=== PATIENT | female | born 1950 | race Caucasian/White ===

== ENCOUNTER 2021-01-09 13:38 | Outpatient (REF) | payer MEDICARE, MEDICAID, SELFPAY ==
--- NOTE | ~2021-01-09 | MM_ITS ---
EXAMINATION: BONE DENSITOMETRY CLINICAL INDICATION: Osteopenia. COMPARISON: Previous BD dated 08/26/2013 and baseline BD dated 03/16/2009. TECHNIQUE: Using a [employer] DXA System (software version: 13.1) manufactured by [employer], dual-energy x-ray absorptiometry was performed of the lumbar spine and left hip. The images are of good technical quality. Summary results are attached. FINDINGS: AP SPINE L1-L4: Current: BMD 1.147 g/cm2, Z-score 1.7, T-score -0.3, normal, 20.9% increase from previous, 18.5% increase from baseline (<5% change is not significant). Prior: BMD 0.949 g/cm2. Baseline: BMD 0.968 g/cm2. LEFT FEMUR, NECK: Current: BMD 0.644 g/cm2, Z-score -1.0, T-score -2.8, osteoporosis. Prior: BMD 0.773 g/cm2. Baseline: BMD 0.757 g/cm2. LEFT FEMUR, TOTAL: Current: BMD 0.760 g/cm2, Z-score -0.3, T-score -2.0, osteopenia, 12.4% decrease from previous, 9.3% decrease from baseline (<5% change is not significant). Prior: BMD 0.868 g/cm2. Baseline: BMD 0.838 g/cm2. IDENTIFIED RISK FACTORS: Early menopause, secondary osteoporosis, family history (parental hip fracture). HISTORY OF FRACTURE: None listed. MEDICATIONS: Vitamin D. MM/XR DEXA axial skeleton IMPRESSION: 1. DIAGNOSIS: Osteoporosis based on the lowest T-score value of -2.8 in the femoral neck applying World Health Organization criteria. 2. 10-YEAR FRACTURE RISK PREDICTION, FRAX: According to the guidelines, FRAX calculation should only be performed on patients in the osteopenia bone density category. 3. Treatment Recommendations: NOF guidelines recommend consideration for treatment in postmenopausal women and men age 50 and older presenting with the following: -A hip or vertebral (clinical or morphometric) fracture. -T-score less than or equal to -2.5 at the femoral neck or spine after appropriate evaluation to exclude secondary causes. -Low bone mass at the hip or spine and a 10-year fracture probability by FRAX of greater than or equal to 3% for hip fracture or greater than or equal to 20% for major osteoporotic fracture based on the [place] adapted WHO algorithm. 4. Other Recommendations: All treatment decisions require clinical judgment and consideration of individual patient factors, including patient preferences, comorbidities, previous drug use, risk factors not captured in the FRAX model (e.g. frailty, falls, vitamin D deficiency, increased bone turnover, interval significant decline in bone density) and possible under or overestimation of fracture risk by FRAX. Additional medical evaluation for secondary cause of low bone mineral density may be appropriate. FUTURE SCAN RECOMMENDATION: People with diagnosed cases of osteoporosis or at high risk for fracture should have regular bone mineral density tests. For patients eligible for Medicare, routine testing is allowed once every 2 years. The testing frequency can be increased to one year for patients who have rapidly progressing disease, those who are receiving or discontinuing medical therapy to restore bone mass, or have additional risk factors.
--- NOTE | ~2021-01-09 | MM_ITS ---
EXAMINATION: MM SCREENING DIGITAL BREAST TOMOSYNTHESIS, BILATERAL CLINICAL INFORMATION: Screening. Asymptomatic. 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 Synthesized 2D images are generated from the tomosynthesis. Left exaggerated craniocaudal view also performed. FINDINGS: The breasts are heterogeneously dense, which may obscure small masses (ACR BI-RADS breast composition Category c). There are no significant masses, abnormal calcifications, or other abnormalities. Postsurgical change left breast again seen. MM/MM tomosynthesis screening BI IMPRESSION: There are no significant changes from prior study. ASSESSMENT: BI-RADS 2: Benign RECOMMENDATION: Routine annual mammography screening. This patient's information was entered into a reminder system with a target due date for their next mammogram.
== END 2021-01-09 13:39 | disposition home or self-care (01) ==
LOC: HO.MAMMO 13:38
PROVIDERS: PCP Internal Medicine; Visit Provider Internal Medicine
DX: Z12.31 Encounter for screening mammogram for malignant neoplasm of breast (principal); Z13.820 Encounter for screening for osteoporosis; M85.80 Other specified disorders of bone density and structure, unspecified site; Z78.0 Asymptomatic menopausal state; Z79.899 Other long term (current) drug therapy
CPT/HCPCS: 77063; 77067; 77080

== ENCOUNTER 2021-10-16 14:36 | Outpatient (REF) | payer OTHER, MEDICAID, SELFPAY ==
[2021-10-16 15:01] LABS: MANUAL DIFF FLAG NO
[2021-10-16 15:47] LABS: Basophils Percent Auto 0.5 % (0-2); Eosinophils Absolute Auto 0.1 X10*3/uL (0.0-0.4); Eosinophils Percent Auto 1.2 % (0-4); Hematocrit 38.8 % (37.0-47.0); Hemoglobin 12.7 g/dl (12.0-16.0); Imm Gran Abs Auto 0.01 X10*3/uL (0.00-0.03); Imm Gran Pct Auto 0.2 % (0.0-0.4); Lymphocytes Absolute Auto 2.3 X10*3/uL (1.2-4.9); Lymphocytes Percent Auto 39.8 % (20-40); Mean Corpuscular HGB Conc 32.7 g/dl (31.0-35.0); Mean Corpuscular Hemoglobin 32.3 pg (27.0-33.0); Mean Corpuscular Volume 98.7 fL (80.0-98.0); Mean Platelet Volume 11.6 fL (9.4-12.3); Monocytes Absolute Auto 0.6 X10*3/uL (0.1-1.2); Monocytes Percent Auto 11.1 % (2-11); Neutrophils Absolute Auto 2.7 x10*3/uL (2.0-8.3); Neutrophils Percent Auto 47.2 % (45-73); Platelet Count 245 X10*3/uL (160-400); Red Blood Count 3.93 X10*6/uL (4.20-5.50); Red Cell Distribution Width 14.9 % (11.0-16.0); White Blood Count 5.7 X10*3/uL (4.8-10.8)
[2021-10-16 16:37] LABS: Alanine Aminotransferase 55 U/L (0-31); Albumin Level 4.4 g/dL (3.5-5.0); Alkaline Phosphatase 152 U/L (39-117); Anion Gap 17 (12-20); Aspartate Amino Transferase 64 U/L (5-31); Bilirubin Total 0.5 mg/dL (0.0-1.0); Blood Urea Nitrogen 9 mg/dL (9-16); Calcium 9.5 mg/dL (8.4-10.2); Carbon Dioxide 26 mmol/L (22-29); Chloride 105 mmol/L (96-108); Estimated Glomerular Filt Rate > 60; Gamma Glutamyl Transpeptidase 568 U/L (7-33); Glucose Random 99 mg/dL (60-115); Potassium 4.7 mmol/L (3.3-5.1); Sodium 143 mmol/L (135-145); Total Protein 8.5 g/dL (6.5-8.0)
[2021-10-16 16:55] LABS: Ferritin 68 ng/mL (10-250)
[2021-10-17 04:46] LABS: HBS Num1 0.54 mIU/mL (0-7.99); HBc Num1 0.14 S/CO (0.00-0.79); HBsAGNum1 0.24 S/CO (0.00-0.99); HIV AB/AG Nonreactive (Nonreactive); HIV Num 1 0.06 S/CO (0.00-0.99); Hepatitis A Antibody IgM 0.15 Index (0-0.79); Hepatitis B Core Antibody Nonreactive (Nonreactive); Hepatitis B Surface Antigen Negative (Negative); ~HepC Num1 0.07 S/CO (0.00-0.79); ~Hepatitis A Antibody IgM Nonreactive (Nonreactive); ~Hepatitis B Surface Antibody NONREACTIVE (Nonreactive); ~Hepatitis C Antibody Nonreactive (Nonreactive)
[2021-10-18 12:11] LABS: Alpha Fetoprotein 4.9 ng/mL
[2021-10-19 13:41] LABS: Smooth Muscle Antibody <20 U (<20)
[2021-10-20 16:21] LABS: Mitochondrial Antibodies NEGATIVE (NEGATIVE)
[2021-10-21 15:42] LABS: Anti Nuclear Antibody Screen NEGATIVE (NEGATIVE)
== END 2021-10-16 14:37 | disposition home or self-care (01) ==
LOC: HO.LAB 14:36
PROVIDERS: Visit Provider Nurse Practitioner
DX: Z01.818 Encounter for other preprocedural examination (principal); Z11.4 Encounter for screening for human immunodeficiency virus [HIV]; R74.01 Elevation of levels of liver transaminase levels
CPT/HCPCS: 36415; 80053; 82105; 82728; 82977; 85025; 86015; 86038; 86039; 86255; 86256; 86704; 86706; 86709; 86803; 87340; 87389; 99202

== ENCOUNTER 2022-09-27 11:35 | Outpatient (REF) | payer OTHER, MEDICAID, SELFPAY ==
[2022-09-27 13:27] LABS: MANUAL DIFF FLAG NO
[2022-09-27 13:33] LABS: Basophils Percent Auto 0.8 % (0-2); Eosinophils Absolute Auto 0.1 X10*3/uL (0.0-0.4); Eosinophils Percent Auto 1.5 % (0-4); Hematocrit 40.4 % (37.0-47.0); Hemoglobin 13.2 g/dl (12.0-16.0); Imm Gran Abs Auto 0.01 X10*3/uL (0.00-0.03); Imm Gran Pct Auto 0.2 % (0.0-0.4); Lymphocytes Absolute Auto 2.5 X10*3/uL (1.2-4.9); Lymphocytes Percent Auto 46.2 % (20-40); Mean Corpuscular HGB Conc 32.7 g/dl (31.0-35.0); Mean Corpuscular Hemoglobin 32.4 pg (27.0-33.0); Mean Platelet Volume 11.6 fL (9.4-12.3); Monocytes Absolute Auto 0.4 X10*3/uL (0.1-1.2); Monocytes Percent Auto 6.8 % (2-11); Neutrophils Absolute Auto 2.4 x10*3/uL (2.0-8.3); Neutrophils Percent Auto 44.5 % (45-73); Platelet Count 215 X10*3/uL (160-400); Red Blood Count 4.08 X10*6/uL (4.20-5.50); Red Cell Distribution Width 14.1 % (11.0-16.0); White Blood Count 5.3 X10*3/uL (4.8-10.8)
[2022-09-27 14:08] LABS: Estimated Average Glucose 117 mg/dL; Hemoglobin A1c % 5.7 %
[2022-09-27 14:14] LABS: Creatinine Urine 31.73 mg/dL; Microalbumin Urine < 5.0 mg/L
[2022-09-27 14:30] LABS: Erythrocyte Sedimentation Rate 38 MM/HR (0-20)
[2022-09-27 14:54] LABS: Rheumatoid Factor < 13.0 IU/mL (<15.0)
[2022-09-27 15:17] LABS: Folate 16.9 ng/mL (> or = 4.0); Vitamin B12 630 pg/mL (200-900)
[2022-09-27 15:20] LABS: Alanine Aminotransferase 44 U/L (0-31); Albumin Level 4.4 g/dL (3.5-5.0); Alkaline Phosphatase 162 U/L (39-117); Anion Gap 19 (12-20); Aspartate Amino Transferase 50 U/L (5-31); Bilirubin Total 0.5 mg/dL (0.0-1.0); Blood Urea Nitrogen 9 mg/dL (9-16); C Reactive Protein 0.48 mg/dL (< or = 0.50); Calcium 9.8 mg/dL (8.4-10.2); Carbon Dioxide 19 mmol/L (22-29); Chloride 107 mmol/L (96-108); Cholesterol 156 mg/dL; Estimated Glomerular Filt Rate > 60; Glucose Random 92 mg/dL (60-115); HDL Cholesterol 41 mg/dL; LDL Cholesterol Calculated 40 mg/dl; Potassium 4.1 mmol/L (3.3-5.1); Sodium 141 mmol/L (135-145); TSH reflex Free T4 5.75 uIU/mL (0.32-4.0); Total Protein 8.9 g/dL (6.5-8.0); Triglycerides 376 mg/dL; Uric Acid 5.6 mg/dL (2.4-5.7)
[2022-09-27 16:08] LABS: Free T4 (Free Thyroxine) 0.72 ng/dL (0.71-1.85)
[2022-09-27 17:08] LABS: CT PCR NOT DETECTED (Not Detect.); NG PCR NOT DETECTED (Not Detect.)
[2022-09-30 04:09] LABS: HBc Num1 0.12 S/CO (0.00-0.79); HIV AB/AG Nonreactive (Nonreactive); HIV Num 1 0.05 S/CO (0.00-0.99); Hepatitis B Core Antibody Nonreactive (Nonreactive); ~Hepatitis B Surface Antibody NONREACTIVE (Nonreactive)
[2022-09-30 04:10] LABS: ~HepC Num1 0.08 S/CO (0.00-0.79); ~Hepatitis C Antibody Nonreactive (Nonreactive)
[2022-09-30 04:20] LABS: Syphilis Screen Nonreactive (Nonreactive)
[2022-10-01 12:13] LABS: Cyclic Citrullinated Peptide <16 UNITS
[2022-10-02 18:04] LABS: VITAMIN D (1,25 OH) D3 22 pg/mL; Vit D (1,25-Dihydroxy) Total 22 pg/mL (18-72); Vitamin D (1,25 OH) D2 <8 pg/mL
[2022-10-07 11:15] LABS: Anti Nuclear Antibody Screen POSITIVE (NEGATIVE); Anti Nuclear Antibody Titer 1:40 titer
== END 2022-09-27 11:36 | disposition home or self-care (01) ==
LOC: HO.HHCL 11:35
PROVIDERS: Visit Provider Student in an Organized Health Care Education/Training Program
DX: Z00.00 Encounter for general adult medical examination without abnormal findings (principal); Z11.4 Encounter for screening for human immunodeficiency virus [HIV]; M25.531 Pain in right wrist; Z20.2 Contact with and (suspected) exposure to infections with a predominantly sexual mode of transmission; E78.5 Hyperlipidemia, unspecified; E11.9 Type 2 diabetes mellitus without complications; E03.8 Other specified hypothyroidism
CPT/HCPCS: 0353U; 80053; 80061; 82043; 82607; 82652; 82746; 83036; 84439; 84443; 84550; 85025; 85652; 86038; 86039; 86140; 86200; 86431; 86704; 86706; 86780; 86803; 87389

== ENCOUNTER 2022-09-27 12:04 | Outpatient (REF) | payer OTHER, MEDICAID, SELFPAY ==
--- NOTE | ~2022-09-27 | XR_ITS ---
EXAMINATION: XR WRIST, RIGHT CLINICAL INFORMATION: Pain and chronic swelling. COMPARISON: None available. TECHNIQUE: PA, lateral, and oblique views of the right wrist. FINDINGS: The bones and soft tissues are normal. No fracture. Alignment is anatomic with normal joint spaces. There is a mild ulnar positive variance. No erosions or abnormal soft tissue calcifications. XR/XR wrist RT min 3V IMPRESSION: Normal right wrist.
== END 2022-09-27 12:05 | disposition home or self-care (01) ==
LOC: HO.HHCX 12:04
PROVIDERS: Visit Provider Student in an Organized Health Care Education/Training Program
DX: M25.531 Pain in right wrist (principal)
CPT/HCPCS: 73110

== ENCOUNTER 2022-10-25 14:11 | Outpatient (REF) | payer OTHER, MEDICAID, SELFPAY ==
--- NOTE | ~2022-10-25 | MM_ITS ---
EXAMINATION: MM SCREENING DIGITAL BREAST TOMOSYNTHESIS, BILATERAL CLINICAL INFORMATION: Screening. Asymptomatic. COMPARISON: Mammography: This study is compared with prior exams dating back to 2013. TECHNIQUE: Digital breast tomosynthesis is performed in both the craniocaudal and mediolateral oblique views along with computer-aided detection (CAD). Synthesized 2D images are generated from the tomosynthesis. FINDINGS: There are scattered areas of fibroglandular density (ACR BI-RADS breast composition Category b). There are no significant masses, abnormal calcifications, or other abnormalities. MM/MM tomosynthesis screening BI IMPRESSION: No mammographic evidence of malignancy. ASSESSMENT: BI-RADS BI-RADS 1 - Negative RECOMMENDATION: Routine annual mammography screening. 1 year F/U This examination should not preclude the clinical evaluation of a suspicious palpable abnormality. This patient's information was entered into a reminder system with a target due date for their next mammogram.
== END 2022-10-25 14:12 | disposition home or self-care (01) ==
LOC: HO.MAMMO 14:11
PROVIDERS: PCP Student in an Organized Health Care Education/Training Program; Visit Provider Student in an Organized Health Care Education/Training Program
DX: Z12.31 Encounter for screening mammogram for malignant neoplasm of breast (principal)
CPT/HCPCS: 77063; 77067

== ENCOUNTER → 2022-10-25 15:30 | Outpatient (BNV) | payer OTHER, MEDICAID, SELFPAY | PROVIDERS: PCP Student in an Organized Health Care Education/Training Program; Visit Provider Radiology Diagnostic Radiology | DX: Z12.31 Encounter for screening mammogram for malignant neoplasm of breast (principal) | CPT/HCPCS: 77063; 77067 ==

== ENCOUNTER 2022-10-28 11:55 | Outpatient (REF) | payer OTHER, MEDICAID, SELFPAY ==
[2022-10-28 13:46] LABS: Erythrocyte Sedimentation Rate 45 MM/HR (0-20)
[2022-10-28 14:09] LABS: Free T4 (Free Thyroxine) 0.72 ng/dL (0.71-1.85); Thyroid Stimulating Hormone 2.78 uIU/mL (0.32-4.0)
[2022-10-28 14:14] LABS: Gamma Glutamyl Transpeptidase 714 U/L (7-33)
[2022-10-31 10:33] LABS: Mitochondrial Antibodies NEGATIVE (NEGATIVE)
== END 2022-10-28 11:56 | disposition home or self-care (01) ==
LOC: HO.HHCL 11:55
PROVIDERS: Visit Provider Student in an Organized Health Care Education/Training Program
DX: E03.9 Hypothyroidism, unspecified (principal); R74.8 Abnormal levels of other serum enzymes
CPT/HCPCS: 36415; 82977; 84439; 84443; 85652; 86255; 86256

== ENCOUNTER 2022-11-08 06:49 | Outpatient (REF) | payer OTHER, MEDICAID, SELFPAY ==
--- NOTE | ~2022-11-08 | XR_ITS ---
EXAMINATION: XR WRIST, RIGHT CLINICAL INFORMATION: Pain COMPARISON: 09/19/2022 wrist radiographs TECHNIQUE: PA, lateral, and oblique views of the right wrist. FINDINGS: No acute fracture or dislocation. Joint spaces are maintained. Soft tissues are unremarkable. XR/XR wrist RT 2V IMPRESSION: No acute osseous abnormality.
== END 2022-11-08 06:50 | disposition home or self-care (01) ==
LOC: HO.HOSX 06:49
PROVIDERS: Visit Provider Physician Assistant
DX: S69.81XA Other specified injuries of right wrist, hand and finger(s), initial encounter (principal); M19.031 Primary osteoarthritis, right wrist; X58.XXXA Exposure to other specified factors, initial encounter; Y93.9 Activity, unspecified; Y92.9 Unspecified place or not applicable; Y99.9 Unspecified external cause status
CPT/HCPCS: 73100

== ENCOUNTER 2022-11-08 14:07 | Outpatient (AMB) | payer OTHER, MEDICAID, SELFPAY ==
--- NOTE | 2022-11-08 14:10 | A.OFFVIS_ITS ---
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 Patient reports ongoing pain for 3 months and located at the volar aspect of the wrist. Denies injury. 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 Denies numbness or tingling. 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 She states she has pain and weakness in the volar aspect of her wrist which makes her unable to twist caps off items and gripping objects. She denies any numbness or tingling and has not had any injury in the past. [facility] Medical History Breast cancer HTN (hypertension), benign Hyperlipidemia Hypertension Osteopenia Surgical History History of lumpectomy History of tubal ligation Family History (Updated 10/16/21 @ 13:30 by KINGSLEY Pardo) Mother Cancer Social History (Updated 11/08/22 @ 14:14 by Mily Nair [facility], [facility]) Alcohol intake: current Alcohol intake frequency: does not drink Patient Tobacco Use Status: Never used Tobacco Current occupational status: disabled Current occupation: right hand dominant Review of Systems Const All systems reviewed & are unremarkable except as noted in HPI and below Physical Exam Vital Signs: BMI result Body Mass Index 22.9 Const General: cooperative, healthy appearing, comfortable, no acute distress, well developed and alert Orientation/consciousness: patient oriented x3 HEENT Head: Yes normal to inspection, Yes normocephalic and Yes atraumatic Eyes General: appearance normal, both eyes and all related structures Resp Effort & Inspection: normal respiratory effort and able to speak in complete sentences Cardio Rate: regular rate Peripheral pulses: Peripheral pulses 2+ throughout GI Palpation (GI): Soft to palpation Skin Lesions: no lesions Rashes: no rashes Neuro General: patient oriented x3 Extrem Other: Right wrist: Pain at the base of the thumb along the CMC joint. Pain with CMC grind, they are able to make a full fist and fully extend. NVI. Results Reviewed Results Reviewed: Xrays were obtained in the office today and personally reviewed by me of the right wrist negative for fracture or dislocation Assessment & Plan Assessment & Plan (1) Osteoarthritis of right wrist: Code(s): M19.031 - Primary osteoarthritis, right wrist Qualifiers: Osteoarthritis type: primary Qualified Code(s): M19.031 - Primary osteoarthritis, right wrist (2) TFCC (triangular fibrocartilage complex) injury: Code(s): S69.80XA - Other specified injuries of unspecified wrist, hand and finger(s), initial encounter Qualifiers: Encounter type: initial encounter Laterality: right Qualified Code(s): S69.81XA - Other specified injuries of right wrist, hand and finger(s), initial encounter Plan We discussed options which include OT, NSAIDs and injections. The patient will defer on the injection today and proceed with OT and NSAIDs. She was also placed in a comfort wrist splint in the office today. If symptoms persist, the patient will contact me for an injection, otherwise, PRN. Orders: Orders OT Evaluation and Treatment 11/08/22 M19.031 - Primary osteoarthritis, right w rist, S69.80XA - Other specified injuries of unspecified wrist, hand and finger(s), initial encounter Patient Instructions: Scribed for Devendra Blake PA-C, by Huy Apple vp medical, on 11/08/2022 at 2:15 PM EST. IDevendra PA-C, have personally reviewed and agree with the information entered by the scribe. Coding Level of Care Code New Pt Level 3 (54088) Diagnoses Primary osteoarthritis of right wrist M19.031 Osteoarthritis type: primary Injury of triangular fibrocartilage complex (TFCC) of right wrist, initial encounter S69.81XA Encounter type: initial encounter Laterality: right
[2022-11-08 14:13] VITALS: BMI 22.9
== END 2022-11-08 14:30 | disposition home or self-care (01) ==
PROVIDERS: PCP Student in an Organized Health Care Education/Training Program; Visit Provider Physician Assistant
DX: M19.031 Primary osteoarthritis, right wrist (principal); S69.81XA Other specified injuries of right wrist, hand and finger(s), initial encounter
CPT/HCPCS: 99203

== ENCOUNTER 2023-05-27 12:41 | Outpatient (REF) | payer OTHER, SELFPAY ==
--- NOTE | ~2023-05-27 | MM_ITS ---
EXAMINATION: BONE DENSITOMETRY CLINICAL INDICATION: Osteoporosis. On treatment to monitor. COMPARISON: Previous BD dated 01/09/2021 and baseline BD dated 03/16/2009. TECHNIQUE: Using a [employer]IS DXA System (software version: 13.1) manufactured by [employer], dual-energy x-ray absorptiometry was performed of the lumbar spine and left hip. The images are of good technical quality. Summary results are attached. FINDINGS: LEFT FEMUR, NECK: Current: BMD 0.854 g/cm2, Z-score 0.6, T-score -1.3, osteopenia. Prior: BMD 0.644 g/cm2. Baseline: BMD 0.757 g/cm2. LEFT FEMUR, TOTAL: Current: BMD 0.890 g/cm2, Z-score 0.8, T-score -0.9, normal, 17.1% increase from previous, 6.2% increase from baseline (<5% change is not significant). Prior: BMD 0.760 g/cm2. Baseline: BMD 0.838 g/cm2. AP SPINE L1-L3 (excluding L4): The data of L1-L4 has been changed to exclude the L4 vertebral body, because degenerative sclerosis at this level may cause overestimation of lumbar spine density. Current: BMD 1.157 g/cm2, Z-score 1.9, T-score -0.1, normal, 3.5% increase from previous, 20.4% increase from baseline (<5% change is not significant). Prior: BMD 1.118 g/cm2. Baseline: BMD 0.961 g/cm2. IDENTIFIED RISK FACTORS: Early menopause, family history (parent hip fracture), secondary osteoporosis. HISTORY OF FRACTURE: None listed. MEDICATIONS: Calcium, vitamin D, bisphosphonate. MM/XR DEXA axial skeleton IMPRESSION: 1. DIAGNOSIS: Osteopenia based on the lowest T-score value of -1.3 in the femoral neck applying World Health Organization criteria. 2. 10-YEAR FRACTURE RISK PREDICTION, FRAX: Not performed in this patient on estrogen or bone building treatments. 3. Treatment Recommendations: NOF guidelines recommend consideration for treatment in postmenopausal women and men age 50 and older presenting with the following: -A hip or vertebral (clinical or morphometric) fracture. -T-score less than or equal to -2.5 at the femoral neck or spine after appropriate evaluation to exclude secondary causes. -Low bone mass at the hip or spine and a 10-year fracture probability by FRAX of greater than or equal to 3% for hip fracture or greater than or equal to 20% for major osteoporotic fracture based on the [place] adapted WHO algorithm. 4. Other Recommendations: All treatment decisions require clinical judgment and consideration of individual patient factors, including patient preferences, comorbidities, previous drug use, risk factors not captured in the FRAX model (e.g. frailty, falls, vitamin D deficiency, increased bone turnover, interval significant decline in bone density) and possible under or overestimation of fracture risk by FRAX. Additional medical evaluation for secondary cause of low bone mineral density may be appropriate. FUTURE SCAN RECOMMENDATION: People with diagnosed cases of osteoporosis or at high risk for fracture should have regular bone mineral density tests. For patients eligible for Medicare, routine testing is allowed once every 2 years. The testing frequency can be increased to one year for patients who have rapidly progressing disease, those who are receiving or discontinuing medical therapy to restore bone mass, or have additional risk factors.
== END 2023-05-27 12:42 | disposition home or self-care (01) ==
LOC: HO.MAMMO 12:41
PROVIDERS: PCP Student in an Organized Health Care Education/Training Program; Visit Provider Student in an Organized Health Care Education/Training Program
DX: Z13.820 Encounter for screening for osteoporosis (principal); Z78.0 Asymptomatic menopausal state; M81.0 Age-related osteoporosis without current pathological fracture
CPT/HCPCS: 77080

== ENCOUNTER 2023-10-22 09:28 | Outpatient (REF) | payer OTHER, SELFPAY ==
[2023-10-22 12:03] LABS: Estimated Average Glucose 120 mg/dL; Hemoglobin A1c % 5.8 % (<6.0)
[2023-10-22 12:33] LABS: Alanine Aminotransferase 41 U/L (0-31); Albumin Level 4.3 g/dL (3.5-5.0); Alkaline Phosphatase 119 U/L (39-117); Anion Gap 14 (12-20); Aspartate Amino Transferase 55 U/L (5-31); Bilirubin Total 0.6 mg/dL (0.0-1.0); Blood Urea Nitrogen 7 mg/dL (9-16); C Reactive Protein 0.68 mg/dL (< or = 0.50); Calcium 9.8 mg/dL (8.4-10.2); Carbon Dioxide 23 mmol/L (22-29); Chloride 110 mmol/L (96-108); Cholesterol 147 mg/dL (<200); Estimated Glomerular Filt Rate > 60; Gamma Glutamyl Transpeptidase 465 U/L (7-33); Glucose Random 113 mg/dL (60-115); HDL Cholesterol 42 mg/dL (>40); LDL Cholesterol Calculated 72 mg/dL (<100); Potassium 3.9 mmol/L (3.3-5.1); Sodium 143 mmol/L (135-145); Total Protein 8.3 g/dL (6.5-8.0); Triglycerides 168 mg/dL (<150)
[2023-10-22 12:39] LABS: Erythrocyte Sedimentation Rate 34 MM/HR (0-20)
[2023-10-22 13:14] LABS: Folate 13.1 ng/mL (> or = 4.0); Vitamin B12 563 pg/mL (200-900)
== END 2023-10-22 09:29 | disposition home or self-care (01) ==
LOC: HO.HHCL 09:28
PROVIDERS: Visit Provider Student in an Organized Health Care Education/Training Program
DX: M25.531 Pain in right wrist (principal); R74.01 Elevation of levels of liver transaminase levels; E11.9 Type 2 diabetes mellitus without complications
CPT/HCPCS: 36415; 80053; 80061; 82607; 82746; 82977; 83036; 85652; 86140

== ENCOUNTER 2023-10-27 16:32 | Outpatient (REF) | payer OTHER, SELFPAY ==
[2023-10-27 17:30] LABS: Creatinine Urine 31.45 mg/dL; Microalbumin Urine < 5.0 mg/L
== END 2023-10-27 16:33 | disposition home or self-care (01) ==
LOC: HO.HHCLNP 16:32
PROVIDERS: Visit Provider Student in an Organized Health Care Education/Training Program
DX: E11.9 Type 2 diabetes mellitus without complications (principal)
CPT/HCPCS: 82043; 82570

== ENCOUNTER 2023-10-31 12:37 | Outpatient (REF) | payer OTHER, SELFPAY ==
--- NOTE | ~2023-10-31 | MM_ITS ---
EXAMINATION: MM SCREENING DIGITAL BREAST TOMOSYNTHESIS, BILATERAL CLINICAL INFORMATION: Screening. Asymptomatic. History conservatively treated left breast cancer in 2008. COMPARISON: Mammography: This study is compared with prior exams dating back to 2020. TECHNIQUE: Digital breast tomosynthesis is performed in both the craniocaudal and mediolateral oblique views along with computer-aided detection (CAD). Synthesized 2D images are generated from the tomosynthesis. FINDINGS: There are scattered areas of fibroglandular density (ACR BI-RADS breast composition Category b). There are no significant masses, abnormal calcifications, or other abnormalities. Postsurgical changes are present in the superior aspect of the left breast. MM/MM tomosynthesis screening BI IMPRESSION: No mammographic evidence of malignancy. ASSESSMENT: BI-RADS BI-RADS 2 - Benign Findings RECOMMENDATION: Routine annual mammography screening. 1 year F/U This examination should not preclude the clinical evaluation of a suspicious palpable abnormality. This patient's information was entered into a reminder system with a target due date for their next mammogram. Electronically signed by: Cassy Sauer MD 11/04/2023 06:21 AM EDT
== END 2023-10-31 12:38 | disposition home or self-care (01) ==
LOC: HO.MAMMO 12:37
PROVIDERS: PCP Student in an Organized Health Care Education/Training Program; Visit Provider Student in an Organized Health Care Education/Training Program
DX: Z12.31 Encounter for screening mammogram for malignant neoplasm of breast (principal)
CPT/HCPCS: 77063; 77067

== ENCOUNTER → 2023-10-31 13:00 | Outpatient (BNV) | payer OTHER, SELFPAY | PROVIDERS: PCP Student in an Organized Health Care Education/Training Program; Visit Provider Radiology Diagnostic Radiology | DX: Z12.31 Encounter for screening mammogram for malignant neoplasm of breast (principal) | CPT/HCPCS: 77063; 77067 ==

== ENCOUNTER 2024-04-02 14:03 | Outpatient (REF) | payer OTHER, SELFPAY ==
--- NOTE | ~2024-04-02 | XR_ITS ---
CLINICAL HISTORY: M25.50 - Pain in unspecified joint 4 view left hand and wrist Comparison: None Findings: No fractures or dislocations. No significant loss of joint space or osteophytes. No erosions. No radiopaque foreign body. IMPRESSION: 1. No acute findings This document has been electronically signed by: Sharon Guevara MD on 04/06/2024 14:00:20
--- NOTE | ~2024-04-02 | XR_ITS ---
CLINICAL HISTORY: M25.50 - Pain in unspecified joint 4 view left shoulder Comparison: None Findings: Bones intact. No dislocations. Mild narrowing of the acromioclavicular joint. No significant osteophyte production. No erosions. No radiopaque foreign body. IMPRESSION: 1. No acute findings This document has been electronically signed by: Sharon Guevara MD on 04/06/2024 14:01:07
--- NOTE | ~2024-04-02 | XR_ITS ---
CLINICAL HISTORY: M25.50 - Pain in unspecified joint 4 view left hand Comparison: None Findings: Bones intact. No dislocations. No significant arthritic change. No erosions. No radiopaque foreign body. IMPRESSION: 1. No acute findings This document has been electronically signed by: Sharon Guevara MD on 04/06/2024 14:01:19
--- NOTE | ~2024-04-02 | XR_ITS ---
CLINICAL HISTORY: M25.50 - Pain in unspecified joint 4 view right shoulder Comparison: None Findings: No fractures or dislocations. No significant loss of joint space or osteophytes. No erosions. No radiopaque foreign body. IMPRESSION: 1. No acute findings This document has been electronically signed by: Sharon Guevara MD on 04/06/2024 13:56:46
--- NOTE | ~2024-04-02 | XR_ITS ---
CLINICAL HISTORY: M25.50 - Pain in unspecified joint 3 view right foot Comparison: None Findings: No fractures or dislocations. No significant loss of joint space, osteophytes, or erosions. No ankle effusion. No radiopaque foreign body. IMPRESSION: 1. No acute findings. This document has been electronically signed by: Sharon Guevara MD on 04/06/2024 14:01:29
--- NOTE | ~2024-04-02 | XR_ITS ---
CLINICAL HISTORY: M25.50 - Pain in unspecified joint 3 view left foot Comparison: None Findings: No fractures or dislocations. No significant arthritic change or erosions. No ankle effusion. No radiopaque foreign body. IMPRESSION: 1. No acute findings. This document has been electronically signed by: Sharon Guevara MD on 04/06/2024 13:59:38
--- OUTSIDE RECORDS SUMMARY | 2024-04-02 15:10 | XMS_ITS | Clinical Summary ---
Author Organization [employer] Address [address] [facility] 7t [place] [address] Care Team Providers Care Renal Medicine Specialist Name Role Phone Nohemi Starr MD Primary Care Pro vider Allergies No known active allergies Medications * This document contains information received from the source organization and may not represent a complete record from that organization. glucose blood test stripIndications:T ype 2 diabetes mellitus with hyperlipidemia (CMS/HCC) ([facility]) Test blood sugar once daily as directed 100 each 11 4 06/04/19 25 Active Lancets miscIndications:Ty pe 2 diabetes mellitus with hyperlipidemia (CMS/HCC) ([facility]) Test blood sugar once daily as directed 100 each 11 4 Active Blood Glucose Monitoring Suppl (Blood Glucose Monitor System) w/Device kitIndications:Typ e 2 diabetes mellitus with hyperlipidemia (CMS/HCC) ([facility]) Test blood sugar once daily as [...] Health Integration Plan Internal Follow up with [facility] Patient Self Plan Patient to utilize skills provided in intervention , Patient to reach out to [facility] team as needed, and Comply with medication . Pt declined referral for OP and oil recovery operator groups. clinician will be available if requested [...] Health Integration Plan Internal Follow up with [facility] Patient Self Plan Patient to utilize skills provided in intervention , Patient to reach out to [facility] team as needed, and Comply with medication . Pt declined referral for OP and oil recovery operator groups. clinician will be available if requested during next visit. 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 Status post lumpectomy, 01/02/2009. 2. Pathology showed extensive intramural and peritumoral sclerosis without any equivocal evidence of invasive tumor. ER positive. IA positive. 3. Tamoxifen started 01/10/2009. She stopped it. 4. Radiation therapy, completed 02/09/2009. Assessment & Plan (09/28/2022 4:13 PM EDT): Benign hypertension 03/03/1959 Hyperlipidemia 03/03/1957 Encounters Date Type Department Care Team Description 01/22/2024 Refill [facility] MEDICINE [address] [place], [place] [phone] Nohemi Starr MD Essential hypertension 01/21/2024 Refill [facility] CHC MED & PEDS [address] [place], [place] [phone] Nohemi Starr MD Essential hypertension 01/20/2024 Refill [facility] MEDICINE [address] [place], [place] [phone] Yaneth Estrada ANP Alcohol abuse 01/09/2024 Telephone [facility] MEDICINE [address] [place], [place] [phone] Nohemi Starr MD from Last 3 Months [...] Description 05/28/2024 1:00 PM EDT Office Visit [facility] OPTOMETRY [address] [place] [address] Bharat, [place], OD [address] [place] [address] 06/02/2024 2:15 PM EDT Office Visit [facility] MEDICINE [address] [place] [address] Nohemi Starr MD [address] [place] [address] Health Maintenance Due Date Last Done Comments [...] EDT Narrative 11/04/2023 6:24 AM EDT ? [facility] ? [address] ?[place] [address] ? Mammography Report ? Signed ? Patient: Julio,Maritza ?MR#: [id number] ? : 1950 ?Acct:[id number] ? Age/Sex: 73 / F ?ADM Date: 10/31/23 ? Loc: HO.MAMMO ? Attending Dr: Nohemi Oquendo MD ? Ordering Physician: Nohemi Starr MD ?Re ?? sults: 2Benign Findings ? Date of Service: 10/31/23 ?Follow Up: 1 Year From Orig ?? inal Mammogram ? Procedure(s): MM tomosynthesis screening BI ?? Accession Number(s): [id number] ? cc: Nohemi Starr MD ? EXAMINATION: [...] their next mammogram. ? Electronically signed by: ??Cassy Sauer MD ??11/04/2023 06:21 AM EDT RP ? Dictated By: ?Cassy Sauer MD ? Signed By: ?<Electronically signed by Cassy Sauer MD in OV> ? 11/04/23 0621 ? DD/ 1245 ? TD/TT: 10/31/23 1305 ? Criminal Legal Assistant: ? Procedure Note Rojelio, Image - 11/04/2023 Gag[facility]ep [facility] [address] [place] [address] Mammography Report Signed Patient: Baljinder Julio#: [id number] : 3Acct:[id number] Age/Sex: 73 / FADM Date: 10/31/23 Loc: HO.MAMMO Attending Dr: Nohemi Oquendo MD Ordering Physician: Nohemi Starr sults: 2Benign Findings Date of Service: 10/31/23Follow Up: 1 Year From Orig inal Mammogram Procedure(s): MM tomosynthesis screening BI Accession Number(s): [id number] cc: Nohemi Starr MD EXAMINATION: MM SCREENING [...] 11/04/23 0621 DD/ 1245 TD/TT: 10/31/23 1305 Criminal Legal Assistant: us Nohemi Oquendo MD IMG BI PROCEDURES Final Result * Albumin, Random Urine W/Creatinine (10/27/2023 12:00 AM EDT) Creatinine, Urine 31.45 mg/dL [facility] Microalbumin Urine <5.0 mg/L [facility] Microalbum Creatinine Ratio Ur TNP <30 ug/mg cr [facility] Comment:Unable to calculate albumin/creatinine ratio due to lowmicroalbumin or creatinine result. 10/27/2023 10/27/2023 us Nohemi Oquendo MD LAB URINE ORDERAB LES Final Result [facility] [address] [place] [address] [phone] * (ABNORMAL) Lipid Panel, Standard (10/22/2023 9:45 AM EDT) Triglycerides 168(H) <150 mg/dL [facility] Comment:Desirable Triglyceri de: less than 150 mg/dLBorderline High Triglyceride 150-199 mg/dLHigh Triglyceride: 200-499 mg/dLVery High Triglyceride: greater than or equal to 5OO mg/dL Cholesterol 147 <200 mg/dL [facility] Comment:Desirable Cholestero l: less than 200 mg/dLBorderline High Cholesterol: 200-239 mg/dLHigh Cholesterol: greater than 239 mg/dL LDL Cholesterol Calculated 72 <100 mg/dL [facility] Comment:Desirable LDL: less than 100 mg/dLNear Optimal/Above Optimal LDL: 110- 129 mg/dLBorderline High LDL: 130-159 mg/dLHigh LDL: 160-189 mg/dLVery High LDL: greater than or equal to 190 mg/dL HDL Cholesterol 42 >40 mg/dL [facility] Comment:Desirable HDL: great er than 40 mg/dL Note: This HDL assay may give artificially low results in patients with liver disease. Blood Venous blood specimen / Unknown 10/22/2023 9:45 AM EDT 10/22/2023 11:36 AM EDT Nohemi Oquendo MD LAB BLOOD ORDERAB LES Final Result [facility] [address] [place] [phone] * Hemoglobin A1c (10/22/2023 12:00 AM EDT) Hemoglobin A1c 5.8 <6.0 % [facility] Comment:Hemoglobin A1C Refer ence Range Adults: 4.8 - 6.0 % Non diabetic: < 6.0 % Goal: < 7.0 %Additional Action Suggested: > 8.0 %Note: Hemoglobin A1c results are invalid for patients with abnormal amounts of HbF. Blood transfusions may impact the HbA1c concentration in the patient sample. Estimated Average Glucose 120 mg/dL [facility] Comment:eAG = Estimated ave rage glucose which is %A1C expressed asaverage glucose, using the formula of the Q1C-GidkaipAhssjdo Glucose study (ADAG), Diabetes Care, Vol.31,#8,Oct. 2007 Blood Venous blood specimen / Unknown 10/22/2023 10/22/2023 Nohemi Oquendo MD LAB BLOOD ORDERAB LES Final Result Performing Organization Address City/[facility]/ZIP Co de Phone Number [facility] [address] [place] [phone] * Hepatitis C Antibody Reflex (09/27/2022 11:40 AM EDT) Hepatitis C Antibody Nonreactive Nonreactive [facility] Comment:Antibodies to HCV no t detected; does not exclude early acuteHCV infection. 09/27/2022 11:4 0 AM EDT 09/27/2022 1:22 PM EDT Nohemi Oquendo MD LAB BLOOD ORDERAB LES Final Result Performing Organization Address City/[facility]/ZIP Co de Phone Number [facility] [address] [place] [phone] from Last 3 Months or Most Recently Relevant to Health Maintenance Insurance * Guarantor: Maritza Julio Account Type Relation to Patient Date of Phone Billing Address Personal/Family Self [address] [place] [address] [facility] DUAL COMPLETE * Guarantor: Maritza Julio Account Type Relation to Patient Date of Phone Billing Address Personal/Family Self [address] [place] [address] * Guarantor: Maritza Julio Account Type Relation to Patient Date of Phone Billing Address Personal/Family Self [address] [place] [address] * Guarantor: Maritza Julio Account Type Relation to Patient Date of Phone Billing Address Personal/Family Self [address] [place] [address] Care Teams Renal Medicine Specialist Relationship Specialty Start Date End Date Nohemi Starr MD [address] [place] [phone] PCP - General Internal Medicine 08/06/22
--- OUTSIDE RECORDS SUMMARY | 2024-04-02 15:10 | XMS_ITS | Encounter Summary ---
Author Organization [employer] Address [address] [facility] 7t [place] [address] Care Team Providers Care Montessori Program Director Name Role Phone Jag [facility] Primary Care Provider [phone] Nohemi Starr MD Primary Care Pro vider Reason for Visit * Reason Onset Date Comments TP appt 05/20/2022 Encounter Details Date Type Department Care Team ([facility] Contact Info) Description 05/20/[address] [facility] MEDICINE [address] [place], [place] [phone] [place] [facility] [address] [place] [address] TP appt Social History Tobacco Use Types [...] with new provider. Please contact pt at [phone] documented in this encounter Plan of Treatment Upcoming Encounters Date Type Department Care Team ([facility] Contact Info) Description 05/28/2024 1:00 PM EDT Office Visit [facility] OPTOMETRY [address] [place], [place] [phone] [place] Nicholson, OD [address] [place] [address] 06/02/2024 2:15 PM EDT Office Visit [facility] MEDICINE [address] [place] [address] Nohemi Starr MD [address] [place], [place] [phone] documented as of this encounter Visit Diagnoses Not on filedocumented in this encounter Care Teams Montessori Program Director Relationship Specialty Start Date End Date [place] FNP [address] [place] [address] [phone] PCP - General Family Medicine 01/21/22 08/05/22 Nohemi Starr MD [address] [place] [address] [phone] PCP - General Internal Medicine 08/06/22 documented as of this encounter
--- OUTSIDE RECORDS SUMMARY | 2024-04-02 15:10 | XMS_ITS | Encounter Summary ---
Author Organization [employer] Address [address] [facility] [address]t [place] [address] Care Team Providers Care Campus Dean Name Role Phone Nohemi Starr MD Primary Care Pro vider Reason for Visit * Reason Comments Med Refill Encounter Details Date Type Department Care Team ([facility] st Contact Info) Description 08/29/2023 Refill [facility] MEDICINE [address] [place], [place] [phone] Nohemi Starr MD [address] [place] [address] Social History Tobacco Use Types Packs/Day Years [...] Description 05/28/2024 1:00 PM EDT Office Visit [facility] OPTOMETRY [address] [place] [address] [place] Nicholson, OD [address] [place] [address] 06/02/2024 2:15 PM EDT Office Visit [facility] MEDICINE [address] [place] [address] Nohemi Starr MD [address] [place] [address] documented as of this encounter Goals Goal [...] documented as of this encounter Care Teams Campus Dean Relationship Specialty Start Date End Date Nohemi Starr MD [address] [place] [phone] PCP - General Internal Medicine 08/06/22 documented as of this encounter
--- OUTSIDE RECORDS SUMMARY | 2024-04-02 15:10 | XMS_ITS | Encounter Summary ---
Author Organization [employer] Address [address] [facility] [address]t [place] [address] Care Team Providers Care Corporate Receptionist Name Role Phone Nohemi Starr MD Primary Care Pro vider Reason for Visit * Reason Comments Med Refill Encounter Details Date Type Department Care Team ([facility] st Contact Info) Description 08/29/2023 Refill [facility] CHC MED & PEDS [address] [place], [place] [phone] Nohemi Starr MD [address] [place], [place] [phone] Social History Tobacco Use Types Packs/Day Years [...] Description 05/28/2024 1:00 PM EDT Office Visit [facility] OPTOMETRY [address] [place] [address] Bharat, [place], OD [address] [place] [address] 06/02/2024 2:15 PM EDT Office Visit [facility] MEDICINE [address] [place] [address] Nohemi Starr MD [address] [place] [address] documented as of this encounter Goals Goal [...] documented as of this encounter Care Teams Corporate Receptionist Relationship Specialty Start Date End Date Nohemi Starr MD [address] [place] [phone] PCP - General Internal Medicine 08/06/22 documented as of this encounter
--- OUTSIDE RECORDS SUMMARY | 2024-04-02 15:10 | XMS_ITS | Encounter Summary ---
Author Organization [facility] Address [address] [place] [address] 7t [place] [address] Care Team Providers Care Whiting Machine Operator Name Role Phone Jag [facility] Primary Care Provider [phone] Nohemi Starr MD Primary Care Pro vider Reason for Visit * Reason Comments Med Refill Encounter Details Date Type Department Care Team ([facility] Contact Info) Description 05/11/[address] [facility] MEDICINE [address] [place] [address] [facility] [address] [place] [address] Essential hypertension Social History Tobacco Use Types [...] Upcoming Encounters Date Type Department Care Team ([facility] Contact Info) Description 05/28/2024 1:00 PM EDT Office Visit [facility] OPTOMETRY [address] [place] [address] [place] Nicholson, OD [address] [place] [address] 06/02/2024 2:15 PM EDT Office Visit [facility] MEDICINE [address] [place] [address] Nohemi Starr MD [address] [place] [address] documented as of this encounter Visit Diagnoses Diagnosis Essential hypertension Unspecified essential hypertension documented in this encounter Care Teams Whiting Machine Operator Relationship Specialty Start Date End Date Irlanda Rm GENERAL I FARMWORKER [address] [place] [phone] PCP - General Family Medicine 01/21/22 08/05/22 Nohemi Starr MD [address] [place] [phone] PCP - General Internal Medicine 08/06/22 documented as of this encounter
[2024-04-02 15:18] LABS: MANUAL DIFF FLAG NO
[2024-04-02 15:49] LABS: Basophils Percent Auto 0.5 % (0-2); Eosinophils Absolute Auto 0.1 X10*3/uL (0.0-0.4); Hematocrit 38.6 % (37.0-47.0); Hemoglobin 13.1 g/dl (12.0-16.0); Imm Gran Abs Auto 0.02 X10*3/uL (0.00-0.03); Imm Gran Pct Auto 0.3 % (0.0-0.4); Lymphocytes Absolute Auto 2.2 X10*3/uL (1.2-4.9); Lymphocytes Percent Auto 35.3 % (20-40); Mean Corpuscular HGB Conc 33.9 g/dl (31.0-35.0); Mean Corpuscular Hemoglobin 33.5 pg (27.0-33.0); Mean Corpuscular Volume 98.7 fL (80.0-98.0); Mean Platelet Volume 10.7 fL (9.4-12.3); Monocytes Absolute Auto 0.5 X10*3/uL (0.1-1.2); Monocytes Percent Auto 8.2 % (2-11); Neutrophils Absolute Auto 3.5 x10*3/uL (2.0-8.3); Neutrophils Percent Auto 54.7 % (45-73); Platelet Count 221 X10*3/uL (160-400); Red Blood Count 3.91 X10*6/uL (4.20-5.50); Red Cell Distribution Width 14.9 % (11.0-16.0); White Blood Count 6.3 X10*3/uL (4.8-10.8)
[2024-04-02 16:27] LABS: Erythrocyte Sedimentation Rate 31 MM/HR (0-20)
[2024-04-02 17:10] LABS: Rheumatoid Factor < 13.0 IU/mL (<15.0)
[2024-04-02 18:00] LABS: Alanine Aminotransferase 57 U/L (0-31); Albumin Level 4.3 g/dL (3.5-5.0); Anion Gap 15 (12-20); Aspartate Amino Transferase 71 U/L (5-31); Bilirubin Total 0.8 mg/dL (0.0-1.0); Blood Urea Nitrogen 8 mg/dL (9-16); C Reactive Protein 0.66 mg/dL (< or = 0.50); Calcium 9.6 mg/dL (8.4-10.2); Carbon Dioxide 22 mmol/L (22-29); Chloride 113 mmol/L (96-108); Estimated Glomerular Filt Rate > 60; Glucose Random 123 mg/dL (60-115); Potassium 3.5 mmol/L (3.3-5.1); Sodium 146 mmol/L (135-145); Total Protein 8.8 g/dL (6.5-8.0)
[2024-04-02 18:08] LABS: Alkaline Phosphatase 120 U/L (39-117)
[2024-04-05 22:08] LABS: Cyclic Citrullinated Peptide <16 UNITS
== END 2024-04-02 14:04 | disposition home or self-care (01) ==
LOC: HO.XRAY 14:03
PROVIDERS: PCP Student in an Organized Health Care Education/Training Program; Visit Provider Student in an Organized Health Care Education/Training Program
DX: M25.50 Pain in unspecified joint (principal)
CPT/HCPCS: 36415; 73030; 73110; 73130; 73630; 80053; 85025; 85652; 86140; 86200; 86431; 99202

== ENCOUNTER 2024-04-02 14:03 | Outpatient (AMB) | payer OTHER, SELFPAY ==
--- NOTE | 2024-04-02 14:04 | MHC.OFFVIS ---
Vital Signs 04/02/24 14:12 Height 5 ft 1 in Weight 122 lb 5.705 oz BMI 23.1 BP 115/58 L Blood Pressure Location Rt brachial Position Sitting Pulse 85 Pulse Source Pulse Oximeter Pulse Oximetry (%) 95 Oxygen Delivery Method Room Air Intake Visit Reasons: Osteoporosis Intake Note: Patient presents for Osteoporosis. I feel pain both shoulders, both wrist, both hands, lower back, both knees and both feet. I been feeling pain for 3 years. No medications helps. Coordinator Integrated Marketing Required: Yes Coordinator Integrated Marketing Language: Order Runner Services: Coordinator Integrated Marketing Present Coordinator Integrated Marketing Name: Ankur [id number] Information Interpreted: non-clinical & clinical Allergies No Known Allergies Allergy (Verified 04/02/24 14:11) Medication List - Last Reconciled 04/02/24 by Briana Matamoros MD alendronate 70 mg PO QWEEK atenolol 1 tab PO DAILY atorvastatin 1 tab PO DAILY blood pressure test kit-large As directed chlorthalidone 1 tab PO DAILY cholecalciferol (vitamin D3) (Vitamin D3) 50 mcg PO DAILY citalopram 40 mg PO DAILY fenofibrate micronized 67 mg PO DAILY metformin 1 tab PO DAILY peg 3350-electrolytes 236-22.74-6.74 -5.86 gram 240 mL PO Q10M HPI Comments Details: Patient is a 74 y.o. female with HLD, depression, diabetes and HTN who is here today for evaluation of bilateral hand pain Patient reports having hand pain for the past 3 years. Associated with stiffness lasting the entire day, that does not improve with movement. Also associated with swelling. Also complains of shoulder, knee and back pain. No associated swelling No known family history of RA Of note she drinks atleast 2 beers every night [facility] Medical History (Updated 04/02/24 @ 14:47 by Briana Matamoros MD) HTN (hypertension), benign Hyperlipidemia Osteopenia Breast cancer Hypertension Surgical History History of tubal ligation History of lumpectomy Family History Mother Cancer Social History Alcohol intake: current Alcohol intake frequency: does not drink Patient Tobacco Use Status: Never used Tobacco Current occupational status: disabled Current occupation: right hand dominant Review of Systems Const Details: Review of Systems Constitutional: Denies fever, chills, weight loss ENT: Denies vision changes, eye pain or eye redness, dental caries, dry mouth GI: Denies nausea, vomiting, diarrhea, abdominal pain, change in BM Pulm: Denies SOB, HALEY, hemoptysis, wheezing Cards: Denies chest pain, palpitations Skin: Denies Raynaud's, rash, nail changes, photosensitivity, 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 Well appearing and in no apparent painful distress HEENT Conjunctiva and sclera clear. ?Pupils equal round and reactive to light. ?No lymphadenopathy. ? CHEST/RESPIRATORY SYSTEM Normal respiratory effort and able to speak in complete sentences. ?Clear to auscultation bilaterally. ?No crackles, rales, rhonchi, wheezes heard. CARDIAC SYSTEM Regular rate and rhythm. ?S1 and S2 heard no murmurs. ?Radial pulses intact bilaterally MSK Hands: ?Good lab aide strength bilaterally. Right Hand: synovial hypertrophy involving the 2nd-3rd MCPs with TTP Left Hand: TTP of the 2nd-4th MCPs Wrists: ?Full range of motion at the wrists but TTP palpation bilateral Elbows: Full range of motion without pain. No tenderness, weakness, swelling, increased warmth or erythema. Shoulders: Decreased active ROM due to pain. Full passive ROM but pain and the extreme of range. Hips: Full range of motion without pain. Hip bursa: No tenderness to palpation Knees: ?Full range of motion. ?No tenderness, swelling, increased warmth or erythema.?Bilateral crepitations Ankles: Full range of motion. ?No tenderness, swelling, increased warmth or erythema.? Feet: ?Negative squeeze test. ?No tenderness to palpation or swelling of the MTPs. Tender points:?No tenderness to palpation of the bilateral trapezius, supraspinatus, greater trochanters, anterior costochondral junctions, bilateral gluteal areas, bilateral suboccipital muscle insertions SKIN Skin intact without rashes. Results Reviewed Results Reviewed: Laboratory Tests 09/27/22 10/28/22 10/22/23 11:40 11:58 09:45 ESR 38 H 45 H Sodium 143 Potassium 3.9 Chloride 110 H Carbon Dioxide 23 BUN 7 L Creatinine 0.70 Total Bilirubin 0.6 GGT 465 H AST 55 H ALT 41 H Alkaline Phosphatase 119 H C-Reactive Protein 0.68 H Albumin 4.3 Rheumatoid Factor < 13.0 Cycl Citrul Peptide IgG <16 MICHAEL Screen POSITIVE A MICHAEL Titer 1:40 H 10/22/23 Unknown ESR 34 H Sodium Potassium Chloride Carbon Dioxide BUN Creatinine Total Bilirubin GGT AST ALT Alkaline Phosphatase C-Reactive Protein Albumin Rheumatoid Factor Cycl Citrul Peptide IgG MICHAEL Screen MICHAEL Titer Assessment & Plan Assessment & Plan (1) Polyarthralgia: Code(s): M25.50 - Pain in unspecified joint Category: Medical Plan: #Polyarthralgia Patient is a 74-year-old female with multiple comorbidities who presents today for evaluation of polyarthralgias particularly pain in the hands. The history is not very Mauricio typical rheumatoid arthritis given that her stiffness does not improve as the day goes on. But her exam is concerning for mild rheumatoid arthritis especially with tenderness to palpation of the MCPs and fullness associated with the 2nd and 3rd MCP of the right hand. 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 I need more objective evidence of inflammatory arthritis prior to making my diagnosis. I will send her for labs and imaging. Plan - Labs today: CBC, CMP, ESR, CRP, RF, CCP - Imaging: X-ray hands, wrists, feet and shoulders - RTC 2 weeks Plan I spent 45 minutes reviewing the record and labs, taking a history, examining the patient, discussing the treatment plan and documenting in the medical record Orders: Orders Complete Blood Count Auto Diff Today M25.50 - Pain in unspecified joint Erythrocyte Sedimentation Rate Today M25.50 - Pain in unspecified joint XR hand wrist LT Today M25.50 - Pain in unspecified joint XR shoulder RT min 2V Today M25.50 - Pain in unspecified joint XR foot RT min 3V Today M25.50 - Pain in unspecified joint Comprehensive Met. Panel Today M25.50 - Pain in unspecified joint C Reactive Protein Today M25.50 - Pain in unspecified joint XR hand wrist RT Today M25.50 - Pain in unspecified joint XR shoulder LT min 2V Today M25.50 - Pain in unspecified joint XR foot LT min 3V Today M25.50 - Pain in unspecified joint Cyclic Citrullinated Peptide Today M25.50 - Pain in unspecified joint Rheumatoid Factor Today M25.50 - Pain in unspecified joint Coding Level of Care Code New Pt Level 4 (29950) Complex EM visit Add On G2211 Diagnoses Polyarthralgia M25.50
--- OUTSIDE RECORDS SUMMARY | 2024-04-02 14:05 | XMS_ITS | Encounter Summary ---
Author Organization [employer] Address [address] [facility] [facility] [address] [place] [address] Care Team Providers Care E Commerce Merchant Name Role Phone Jag [facility] Primary Care Provider [phone] Nohemi Starr MD Primary Care Pro vider Reason for Visit * Reason Onset Date Comments TP appt 05/20/2022 Encounter Details Date Type Department Care Team ([facility] Contact Info) Description 05/20/2022 Telephone [facility] MEDICINE [address] [place], [place] [phone] Blunt [facility] [address] [place] [address] TP appt Social History Tobacco Use Types Packs/Day Years Used Date Smoking Tobacco: Never Assessed Comments Unknown Sex and Gender Information Value Date Recorded Sex Assigned at Female 12/31/2021 10:14 AM EDT Legal Sex Female 10:14 AM EDT Gender Identity Male 12/31/2021 10:14 AM EDT Sexual Orientation Straight 12/31/2021 10 :14 AM EDT documented as of this encounter Miscellaneous Notes * Telephone Encounter - Emilie Ryan - 05/20/2022 4:07 PM EDT Tc from pt requesting an appt with new provider. Please contact pt at [phone] documented in this encounter Plan of Treatment Upcoming Encounters Date Type Department Care Team ([facility] Contact Info) Description 05/28/2024 1:00 PM EDT Office Visit [facility] OPTOMETRY [address] [place], [place] [phone] Temitope Nicholson, OD [address] [place] [address] 06/02/2024 2:15 PM EDT Office Visit [facility] MEDICINE [address] [place] [address] Nohemi Starr MD [address] [place], [place] [phone] documented as of this encounter Visit Diagnoses Not on filedocumented in this encounter Care Teams E Commerce Merchant Relationship Specialty Start Date End Date BluntIrlanda FNP [address] [place] [address] [phone] PCP - General Family Medicine 01/21/22 08/05/22 Nohemi Starr MD [address] [place] [address] [phone] PCP - General Internal Medicine 08/06/22 documented as of this encounter
--- OUTSIDE RECORDS SUMMARY | 2024-04-02 14:05 | XMS_ITS | Encounter Summary ---
Author Organization [employer] Address [address] [place] [address] Care Team Providers Care Kettle Hand Name Role Phone Nohemi Starr MD Primary Care Pro vider Reason for Visit * Reason Comments Med Refill Encounter Details Date Type Department Care Team ([facility] st Contact Info) Description 08/29/[address] [facility] MEDICINE [address] [place], [place] [phone] Nohemi Starr MD [address] [place] [address] Social History Tobacco Use Types Packs/Day Years Used Date Smoking Tobacco: Former Cigarettes Passive Smoke Exposure: Never Smokeless Tobacco: Never Comments:Started 17 y of age stopped 5 y ago at her 67 y of age -used to smoke 1 -5 cigarettes a day ,smoked x 52 y of age - PQT calc 7.5 -no rec x lung ca screening Alcohol Use Standard Drinks/Week Comments Yes 0 (1 standard drink = 0.6 oz pur e alcohol) 2 beer a day Depression Answer Date Recorded Patient Health Questionnaire-9 Score 15 05/15/2023 Patient Health Questionnaire-9 Score 15 05/15/2023 Last PHQ-9: Questionnaire Data Not on file 0 05/15/2023 Housing Stability Answer Date Recorded What is your housing situation today? I have hubertmaritza miller 12/18/[address] you li ve. Do you have problems with any of the following? None of the above 12/18/2022 Food Insecurity Answer Date Recorded Within the past 12 months, y ou worried that your food would run out before you got money to buy more: Never True 12/18/2022 Within the past 12 months,th e food you bought just didn't last and you didn't have enough money to get more: Never True Transportation Answer Date Recorded In the past 12 months, has l ack of transportation kept you from medical appts, meetings, work or from getting things needed for daily living? No 12/18/2022 Utilities Answer Date Recorded In the past 12 months, has t he electric, gas, oil or water company threatened to shut off services in your home? No 12/18/2022 Depression Answer Date Recorded Patient Health Questionnaire-2 Score 4 05/15/2023 Comments Unknown Sex and Gender Information Value Date Recorded Sex Assigned at Female 12/31/2021 10:14 AM EDT Legal Sex Female 10:14 AM EDT Gender Identity Male 12/31/2021 10:14 AM EDT Sexual Orientation Straight 12/31/2021 10 :14 AM EDT documented as of this encounter Plan of Treatment Upcoming Encounters Date Type Department Care Team (Late st Contact Info) Description 05/28/2024 1:00 PM EDT Office Visit [facility] OPTOMETRY [address] [place] [address] Temitope Nicholson, OD [address] [place] [address] 06/02/2024 2:15 PM EDT Office Visit [facility] MEDICINE [address] [place] [address] Nohemi Starr MD [address] [place] [address] documented as of this encounter Goals Goal Patient Goal Type Associated Problems Recent Progress Patient-Stated? Author Blood Pressure < 140/90 Blood Pressure 131/67(2023 1:14 PM EDT) No Mohini Osorio Record your blood pressure 1-3 times per week Blood Pressure On track( 3:10 PM EDT) No Mohini Osorio documented as of this encounter Visit Diagnoses Not on filedocumented in this encounter Additional Health Concerns Assessment Noted Time PHQ-9 Depression Total Score: 15 9:18 AM EDT documented as of this encounter Care Teams Kettle Hand Relationship Specialty Start Date End Date Nohemi Starr MD [address] [place] [phone] PCP - General Internal Medicine 08/06/22 documented as of this encounter
--- OUTSIDE RECORDS SUMMARY | 2024-04-02 14:05 | XMS_ITS | Encounter Summary ---
Author Organization [employer] [facility] Address [address] [place] [address] 7[address] [place] [address] Care Team Providers Care Stitch Rubber Name Role Phone Jag [facility] Primary Care Provider [phone] Nohemi Starr MD Primary Care Pro vider Reason for Visit * Reason Comments Med Refill Encounter Details Date Type Department Care Team ([facility] Contact Info) Description 05/11/2022 Refill [facility] MEDICINE [address] [place] [address] [facility] [address] [place] [address] Essential hypertension Social History Tobacco Use Types Packs/Day Years [...] Upcoming Encounters Date Type Department Care Team ([facility] Contact Info) Description 05/28/2024 1:00 PM EDT Office Visit [facility] OPTOMETRY [address] [place] [address] Temitope Nicholson, OD [address] [place] [address] 06/02/2024 2:15 PM EDT Office Visit [facility] MEDICINE [address] [place] [address] Nohemi Starr MD [address] [place] [address] documented as of this encounter Visit Diagnoses Diagnosis Essential hypertension Unspecified essential hypertension documented in this encounter Care Teams Stitch Rubber Relationship Specialty Start Date End Date Irlanda Rm [employer] [address] [place] [phone] PCP - General Family Medicine 01/21/22 08/05/22 Nohemi Starr MD [address] [place] [phone] PCP - General Internal Medicine 08/06/22 documented as of this encounter
--- OUTSIDE RECORDS SUMMARY | 2024-04-02 14:05 | XMS_ITS | Clinical Summary ---
Author Organization [employer] Address [address] [facility] [address] [place] [address] Care Team Providers Care Rod Buster Helper Name Role Phone Nohemi Starr MD Primary Care Pro vider Allergies No known active allergies Medications * This document contains information received from the source organization and may not represent a complete record from that organization. glucose blood test stripIndications:T ype 2 diabetes mellitus with hyperlipidemia (CMS/HCC) ([facility]) Test blood sugar once daily as directed 100 each 11 4 06/04/19 25 Active Lancets miscIndications:Ty pe 2 diabetes mellitus with hyperlipidemia (CMS/HCC) ([facility]) Test blood sugar once daily as directed 100 each 11 4 Active Blood Glucose Monitoring Suppl (Blood Glucose Monitor System) w/Device kitIndications:Typ e 2 diabetes mellitus with hyperlipidemia (CMS/HCC) ([facility]) Test blood sugar once daily as directed 1 kit 4 Active Calcium Carb-Cholecalcifer ol (Calcium 600+D) 600-20 MG-MCG tablet Take 1 tablet by mouth at noon and 1 tablet in the evening. 180 tablet 1 4 08/29/19 25 Active Diclofenac Sodium 1 % gelIndications:Rig ht wrist pain Apply 1 Application. topically Once per day. 50 g 4 Active acamprosate (Campral) 333 MG EC tabletIndications: Alcohol abuse Take 2 tablets (666 mg) by mouth 3 times daily. Do not crush, chew, or split. 168 tablet 2 4 Active metFORMIN (Glucophage) 500 MG tabletIndications: Elevated blood sugar TAKE 1/2 TABLET BY MOUTH TWICE DAILY IN THE MORNING AND EVENING WITH MEALS 90 tablet 1 4 Active omega-3 (Fish Oil) 1000 MG capsule Take 1 capsule (1,000 mg) by mouth in the morning. 90 capsule 4 Active amLODIPine (Norvasc) 10 MG tablet TAKE 1 TABLET BY MOUTH EVERY MORNING 90 tablet 1 4 Active atorvastatin (Lipitor) 20 MG tabletIndications: Type 2 diabetes mellitus with hyperlipidemia (CMS/HCC) (CMS/HCC) TAKE 1 TABLET BY MOUTH EVERY MORNING 90 tablet 1 4 Active citalopram (CeleXA) 40 MG tabletIndications: Depressive disorder TAKE 1 TABLET BY MOUTH EVERY MORNING 90 tablet 1 4 Active alendronate (Fosamax) 70 MG tabletIndications: Osteoporosis, unspecified osteoporosis type, unspecified pathological fracture presence take 1 tablet by mouth once a week with 6 to 8 oz of water 30 min before first food of day. do not lie down for 30 minutes 12 tablet 1 4 Active allopurinol (Zyloprim) 100 MG tabletIndications: Gout, unspecified cause, unspecified chronicity, unspecified site TAKE 1 TABLET BY MOUTH EVERY MORNING 90 tablet 1 4 Active folic acid (Folvite) 400 MCG tabletIndications: Alcohol abuse TAKE 1 TABLET BY MOUTH EVERY MORNING 90 tablet 1 4 Active thiamine (Vitamin B-1) 100 MG tabletIndications: Alcohol abuse TAKE 1 TABLET BY MOUTH EVERY MORNING 90 tablet 1 4 Active atenolol (Tenormin) 25 MG tabletIndications: Essential hypertension TAKE 1 TABLET BY MOUTH EVERY MORNING 90 tablet 1 4 Active Active Problems Problem Noted Date Diagnosed Date Poor memory 10/27/2023 Left shoulder pain 10/27/2023 Depressive disorder 05/09/2023 Assessment & Plan (05/15/2023 9:31 AM EDT): During IBH Consult Maritza presenting with depressed mood, loss of interests/pleasure , changes in sleep difficulty falling asleep, change in appetite or weight reduce appetite, trouble concentrating, thoughts of worthlessness or guilt, inappropriate guilt , hopelessness, worthlessness , difficulty concentrating and unsuccessful attempt/s to cut down/stop use, cravings and urges to use, recurrent use resulting in failure to fulfill major obligations at work/home/school , continued use, even when it causes interpersonal problems, continued use despite physical or psychological problem (potentially related or made worse by use) ; for a period of 18+ mo, for all symptoms in the context of family issues and illness or family illness. Maritza has tried to cut down the alcohol use. She reports having 2 to 3 beer every night. Sense of loneliness and isolation are main triggers for sxs. Maritza has tried recovery groups in the past but per patient's report it was not helpful. Aware of importance of cutting down drinking due to medical condition. Pt contemplates changes but not ready at this time. PLAN: (check all that apply) Further services needed, but declined Behavioral Health Integration Plan Internal Follow up with [facility] Patient Self Plan Patient to utilize skills provided in intervention , Patient to reach out to [facility] team as needed, and Comply with medication . Pt declined referral for OP and manager of disaster recovery groups. clinician will be available if requested during next visit. Leg pain, anterior, right 05/07/2023 Positive MARITZA (antinuclear antibody) 10/28/2022 Health care maintenance 10/28/2022 Osteoporosis 09/28/2022 Overview (09/28/2022): -Dexa scan 2020: Osteoporosis based on the lowest T-score value of -2.8 in the femoral neck applying World Health Organization criteria. Diabetes mellitus type 2 in nonobese 09/28/2022 Gout 09/28/2022 Right wrist pain 09/28/2022 Alcohol abuse 09/28/2022 Assessment & Plan (05/15/2023 9:32 AM EDT): During IBH Consult Maritza presenting with depressed mood, loss of interests/pleasure , changes in sleep difficulty falling asleep, change in appetite or weight reduce appetite, trouble concentrating, thoughts of worthlessness or guilt, inappropriate guilt , hopelessness, worthlessness , difficulty concentrating and unsuccessful attempt/s to cut down/stop use, cravings and urges to use, recurrent use resulting in failure to fulfill major obligations at work/home/school , continued use, even when it causes interpersonal problems, continued use despite physical or psychological problem (potentially related or made worse by use) ; for a period of 18+ mo, for all symptoms in the context of family issues and illness or family illness. Maritza has tried to cut down the alcohol use. She reports having 2 to 3 beer every night. Sense of loneliness and isolation are main triggers for sxs. Maritza has tried recovery groups in the past but per patient's report it was not helpful. Aware of importance of cutting down drinking due to medical condition. Pt contemplates changes but not ready at this time. PLAN: (check all that apply) Further services needed, but declined Behavioral Health Integration Plan Internal Follow up with [facility] Patient Self Plan Patient to utilize skills provided in intervention , Patient to reach out to [facility] team as needed, and Comply with medication . Pt declined referral for OP and manager of disaster recovery groups. clinician will be available if requested during next visit. 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 Status post lumpectomy, 01/02/2009. 2. Pathology showed extensive intramural and peritumoral sclerosis without any equivocal evidence of invasive tumor. ER positive. TX positive. 3. Tamoxifen started 01/10/2009. She stopped it. 4. Radiation therapy, completed 02/09/2009. Assessment & Plan (09/28/2022 4:13 PM EDT): Benign hypertension 03/03/1959 Hyperlipidemia 03/03/1959 Encounters Date Type Department Care Team Description 01/22/2024 Refill [facility] MED[facility] [address] [place], [place] [phone] Nohemi Starr MD Essential hypertension 01/21/2024 Refill [facility] MED & PEDS [address] [place], [place] [phone] Nohemi Starr MD Essential hypertension 01/20/2024 Refill [facility] [address] [place], [place] [phone] Yaneth Estrada ANP Alcohol abuse 01/09/2024 Telephone [facility] [address] [place], [place] [phone] Nohemi Starr MD from Last 3 Months Immunizations Name Administration Dates Next Due Hep B, adult 10/27/2023,05/07/2023,10/28/2022 Influenza High-dose Quadriva lent Preservative Free 12/18/2020 Influenza injectable quadriv alent preservative free 05/02/2014 Influenza, IIV3, injectable 02/13/2011 Influenza, Split (incl. julio fied surface antigen) 10/29/2011 Pfizer Covid-19 Vaccine 12+ 05/07/2023 Pfizer Covid-19 Vaccine 12+ Bivalent 03/21/2022 Pneumococcal Conjugate PCV 13 02/02/2021 Pneumococcal Conjugate PCV 20 09/27/2022 Pneumococcal Polysaccharide PPSV23 05/02/2014 Tdap 10/30/2021,02/13/2011 Family History Medical History Relation Name Comments Alcohol abuse Mother Hyperlipidemia Mother Hypertension Mother Liver cancer Mother Diabetes type II Sister Hyperlipidemia Sister Hypertension Sister Relation Name Status Comments Mother Sister Social History Tobacco Use Types Packs/Day Years Used Date Smoking Tobacco: Former Cigarettes Passive Smoke Exposure: Never Smokeless Tobacco: Never Tobacco Cessation:Counseling Given: Not Answered Comments:Started 17 y of age stopped 5 [...] is your housing situation today? I have hubert miller 10/27/[address] you li ve. Do you have problems with any of the following? None of the above 10/27/2023 Food Insecurity Answer Date Recorded Within the past 12 months, y ou worried that your food would run out before you got money to buy more: Never True 10/27/2023 Within the past 12 months,th e food you bought just didn't last and you didn't have enough money to get more: Never True Transportation Answer Date Recorded In the past 12 months, has l ack of transportation kept you from medical appts, meetings, work or from getting things needed for daily living? No 10/27/2023 Utilities Answer Date Recorded In the past 12 months, has t he electric, gas, oil or water company threatened to shut off services in your home? No 10/27/2023 Depression Answer Date Recorded Patient Health Questionnaire-2 Score 4 05/15/2023 Comments Unknown Sex and Gender Information Value Date Recorded Sex Assigned at Female 12/31/2021 10:14 AM EDT Legal Sex Female 10:14 AM EDT Gender Identity Male 12/31/2021 10:14 AM EDT Sexual Orientation Straight 12/31/2021 10 :14 AM EDT Last Filed Vital Signs Vital Sign Reading Time Taken Comments Blood Pressure 131/67 10/27/2023 1:14 PM EDT Pulse 71 10/27/2023 1:14 PM EDT Temperature 36.4 ??C (97.5 ??F) 10/27/2023 1:14 PM ED T Respiratory Rate 20 10/27/2023 1:14 PM EDT Oxygen Saturation 97% 10/27/2023 1:14 PM EDT Inhaled Oxygen Concentration - - Weight 57.1 kg (125 lb 12.8 oz) 10/27/2023 1:14 PM EDT Height 155.7 cm (5' 1.3 ) 10/27/2023 1:14 PM EDT Body Mass Index 23.54 10/27/2023 1:14 PM EDT Plan of Treatment Upcoming Encounters Date Type Department Care Team (Late st Contact Info) Description 05/28/2024 1:00 PM EDT Office Visit [facility] OPT[facility] [address] [place] [address] Bharat, [place], OD [address] [place] [address] 06/02/2024 2:15 PM EDT Office Visit [facility]INE [address] [place] [address] Nohemi Starr MD [address] [place] [address] Health Maintenance Due Date Last Done Comments CT Colonography 1950 Colonoscopy 1950 Colorectal Cancer Screening 1950 FIT DNA/Cologuard 1950 FIT 1950 FOBT 1950 Sigmoidoscopy 1950 Diabetes: Foot Exam 1962 Alcohol/Substance Use Screening 1964 Hepatitis A Vaccines (1 of 2 - Risk 2-dose series) 1971 Zoster Vaccines (1 of 2) 2002 SDOH Screening 09/28/2023 09/27/2022 COVID-19 Vaccine ( season) 2023 05/07/2023, 03/21/2022, 01/15/2021, Additional history exists Influenza Vaccine (#1) 2023 , 05/02/2014, 10/29/2011, Additional history exists Depression Monitoring (PHQ-9) 11/15/2023 05/15/2023, 05/15/2023 Diabetes: Hemoglobin A1C 04/23/2024 024, 05/07/2023, 09/27/2022, Additional history exists Depression Screening 05/14/2024 05/15/2023, 05/15/19 24 Lipid Panel 10/21/2024 10/22/2023, 09/01, 12/14/2020 Diabetes: Urine Protein Screening 10/26/2024 10/27/2023, 09/27/2022, 12/14/2020 Tobacco Screening 10/26/2024 10/27/2023 Eye Exam 01/09/2025 01/09/2023, 1111/2022, 01/09/2023, Additional history exists Mammogram 10/30/2025 10/31/2023, 10/02, 01/09/2021, Additional history exists RSV Patients and Patients Aged 60 years or older (1 - 1-dose 75+ series) 2027 DTaP/Tdap/Td Vaccines (3 - Td or Tdap) 10/31/2031 10/30/2021, 02/13/2011 Hepatitis C Screening Completed 09/27/2022, 021 Pneumococcal Vaccine: 50+ Years Completed 09/27/2022, 02/02/2021, 05/02/2014 Hepatitis B Vaccines Completed 10/27/2023, 05/07/2023, 10/28/2022 HIB Vaccines Aged Out No longer eligi ble based on patient's age to complete this topic HPV Vaccines Aged Out No longer eligi ble based on patient's age to complete this topic IPV Vaccines Aged Out No longer eligi ble based on patient's age to complete this topic Meningococcal Vaccine Aged Out No franklyn cole eligible based on patient's age to complete this topic RSV under 20 months Aged Out No longe r eligible based on patient's age to complete this topic Rotavirus Vaccines Aged Out No longer eligible based on patient's age to complete this topic Goals Goal Patient Goal Type Associated Problems Recent Progress Patient-Stated? Author Blood Pressure < 140/90 Blood Pressure 131/67(2023 1:14 PM EDT) No Mohini Osorio Record your blood pressure 1-3 times per week Blood Pressure On track( 024 3:10 PM EDT) No Mohini Osorio Procedures Procedure Name Priority Date/Time Associated Diagnosis Comments BI MAMMOGRAM SCREENING TOMOSYNTHESIS BILATERAL Routine 10/31/2023 12:45 PM EDT ALBUMIN, RANDOM URINE W/CREATININE Routine 10/27/2023 12:00 AM EDT LIPID PANEL, STANDARD Routine 10/22/2023 9:45 AM EDT Diabetes mellitus type 2 in nonobese (CMS/HCC) HEMOGLOBIN A1C Routine 10/22/2023 12:00 AM EDT Diabetes mellitus type 2 in nonobese (CMS/HCC) HEPATITIS C ANTIBODY REFLEX Routine 09/27/2022 11:40 AM EDT from Last 3 Months or Most Recently Relevant to Health Maintenance Results * BI Mammogram Screening Tomosynthesis Bilateral (10/31/2023 12:45 PM EDT) Anatomical Region Laterality Modality Breast Bilateral Mammography 10/31/2023 12:4 5 PM EDT Narrative 11/04/2023 6:24 AM EDT ? [facility] ? [address] ?[place] [address] ? Mammography Report ? Signed ? Patient: Julio,Maritza ?MR#: [id number] ? : 1950 ?Acct:[id number] ? Age/Sex: 73 / F ?ADM Date: 10/31/23 ? Loc: HO.MAMMO ? Attending Dr: Nohemi Oquendo MD ? Ordering Physician: Nohemi Starr MD ?Re ?? sults: 2Benign Findings ? Date of Service: 10/31/23 ?Follow Up: 1 Year From Orig ?? inal Mammogram ? Procedure(s): MM tomosynthesis screening BI ?? Accession Number(s): [id number] ? cc: Nohemi Starr MD ? EXAMINATION: ?? MM SCREENING DIGITAL BREAST TOMOSYNTHESIS, BILATERAL ? CLINICAL INFORMATION: ? Screening. Asymptomatic. ? History conservatively treated left breast cancer in 2009. ? COMPARISON: ?? Mammography: This study is compared with prior exams dating back to ? 2020. ? TECHNIQUE: ?? Digital breast tomosynthesis is performed in both the craniocaudal and ?? mediolateral oblique views along with computer-aided detection (CAD). ? Synthesized 2D images are generated from the tomosynthesis. ? FINDINGS: ?? There are scattered areas of fibroglandular density (ACR BI-RADS breast ?? composition Category b). ? There are no significant masses, abnormal calcifications, or other ?? abnormalities. ?? Postsurgical changes are present in the superior aspect of the left ?? breast. ? MM/MM tomosynthesis screening BI ?? IMPRESSION: ?? No mammographic evidence of malignancy. ? ASSESSMENT: ? BI-RADS BI-RADS 2 - Benign Findings ? RECOMMENDATION: ?? Routine annual mammography screening. ? 1 year F/U ? This examination should not preclude the clinical evaluation of a ?? suspicious palpable abnormality. ? This patient's information was entered into a reminder system with a ?? target due date for their next mammogram. ? Electronically signed by: ??aCssy Sauer MD ??11/04/2023 06:21 AM EDT RP ? Dictated By: ?Cassy Sauer MD ? Signed By: ?<Electronically signed by Cassy Sauer MD in OV> ? 11/04/23 0621 ? DD/ 1245 ? TD/TT: 10/31/23 1305 ? Scraper Loader Operator: ? Procedure Note Rojelio, Image - 11/04/2023 Gagandeep [facility] [address] [place] [address] Mammography Report Signed Patient: Baljinder Julio#: [id number] : 3Acct:[id number] Age/Sex: 73 / FADM Date: 10/31/23 Loc: HO.MAMMO Attending Dr: Nohemi Oquendo MD Ordering Physician: Nohemi Starr sults: 2Benign Findings Date of Service: 10/31/23Follow Up: 1 Year From Orig inal Mammogram Procedure(s): MM tomosynthesis screening BI Accession Number(s): [id number] cc: Nohemi Starr MD EXAMINATION: MM SCREENING DIGITAL BREAST TOMOSYNTHESIS, BILATERAL CLINICAL INFORMATION: Screening. Asymptomatic. History conservatively treated left breast cancer in 2008. COMPARISON: Mammography: This study is compared with prior exams dating back to 2020. TECHNIQUE: Digital breast tomosynthesis is performed in both the craniocaudal and mediolateral oblique views along with computer-aided detection (CAD). Synthesized 2D images are generated from the tomosynthesis. FINDINGS: There are scattered areas of fibroglandular density (ACR BI-RADS breast composition Category b). There are no significant masses, abnormal calcifications, or other abnormalities. Postsurgical changes are present in the superior aspect of the left breast. MM/MM tomosynthesis screening BI IMPRESSION: No mammographic evidence of malignancy. ASSESSMENT: BI-RADS BI-RADS 2 - Benign Findings RECOMMENDATION: Routine annual mammography screening. 1 year F/U This examination should not preclude the clinical evaluation of a suspicious palpable abnormality. This patient's information was entered into a reminder system with a target due date for their next mammogram. Electronically signed by: Cassy Sauer MD 11/04/2023 06:21 AM EDT RP Dictated By: Cassy Sauer MD Signed By: <Electronically signed by Cassy Sauer MD in OV> 11/04/23 0621 DD/ 1245 TD/TT: 10/31/23 1305 Scraper Loader Operator: us Nohemi Oquendo MD IMG BI PROCEDURES Final Result * Albumin, Random Urine W/Creatinine (10/27/2023 12:00 AM EDT) Creatinine, Urine 31.45 mg/dL [facility] Microalbumin Urine <5.0 mg/L [facility] Microalbum Creatinine Ratio Ur TNP <30 ug/mg cr [facility] Comment:Unable to calculate albumin/creatinine ratio due to lowmicroalbumin or creatinine result. 10/27/2023 10/27/2023 us Nohemi Oquendo MD LAB URINE ORDERAB LES Final Result [facility] [address] [place] [address] [phone] * (ABNORMAL) Lipid Panel, Standard (10/22/2023 9:45 AM EDT) Triglycerides 168(H) <150 mg/dL [facility] Comment:Desirable Triglyceri de: less than 150 mg/dLBorderline High Triglyceride 150-199 mg/dLHigh Triglyceride: 200-499 mg/dLVery High Triglyceride: greater than or equal to 5OO mg/dL Cholesterol 147 <200 mg/dL [facility] Comment:Desirable Cholestero l: less than 200 mg/dLBorderline High Cholesterol: 200-239 mg/dLHigh Cholesterol: greater than 239 mg/dL LDL Cholesterol Calculated 72 <100 mg/dL [facility] Comment:Desirable LDL: less than 100 mg/dLNear Optimal/Above Optimal LDL: 110- 129 mg/dLBorderline High LDL: 130-159 mg/dLHigh LDL: 160-189 mg/dLVery High LDL: greater than or equal to 190 mg/dL HDL Cholesterol 42 >40 mg/dL [facility] Comment:Desirable HDL: great er than 40 mg/dL Note: This HDL assay may give artificially low results in patients with liver disease. Blood Venous blood specimen / Unknown 10/22/2023 9:45 AM EDT 10/22/2023 11:36 AM EDT Nohemi Oquendo MD LAB BLOOD ORDERAB LES Final Result [facility] [address] [place] [phone] * Hemoglobin A1c (10/22/2023 12:00 AM EDT) Hemoglobin A1c 5.8 <6.0 % [facility] Comment:Hemoglobin A1C Refer ence Range Adults: 4.8 - 6.0 % Non diabetic: < 6.0 % Goal: < 7.0 %Additional Action Suggested: > 8.0 %Note: Hemoglobin A1c results are invalid for patients with abnormal amounts of HbF. Blood transfusions may impact the HbA1c concentration in the patient sample. Estimated Average Glucose 120 mg/dL [facility] Comment:eAG = Estimated ave rage glucose which is %A1C expressed asaverage glucose, using the formula of the P7S-ClhnjrhLjbfkue Glucose study (ADAG), Diabetes Care, Vol.31,#8,Oct. 2007 Blood Venous blood specimen / Unknown 10/22/2023 10/22/2023 Nohemi Oquendo MD LAB BLOOD ORDERAB LES Final Result Performing Organization Address City/[facility]/ZIP Co de Phone Number [facility] [address] [place] [address] [phone] * Hepatitis C Antibody Reflex (09/27/2022 11:40 AM EDT) Hepatitis C Antibody Nonreactive Nonreactive [facility] Comment:Antibodies to HCV no t detected; does not exclude early acuteHCV infection. 09/27/2022 11:4 0 AM EDT 09/27/2022 1:22 PM EDT Nohemi Oquendo MD LAB BLOOD ORDERAB LES Final Result Performing Organization Address City/[facility]/ZIP Co de Phone Number [facility] [address] [place] [phone] from Last 3 Months or Most Recently Relevant to Health Maintenance Insurance * Guarantor: Maritza Julio Account Type Relation to Patient Date of Phone Billing Address Personal/Family Self [address] [place] [address] [facility] DUAL COMPLETE * Guarantor: Maritza Julio Account Type Relation to Patient Date of Phone Billing Address Personal/Family Self [address] [place] [address] * Guarantor: Maritza Julio Account Type Relation to Patient Date of Phone Billing Address Personal/Family Self [address] [place] [address] * Guarantor: Maritza Julio Account Type Relation to Patient Date of Phone Billing Address Personal/Family Self [address] [place] [address] Care Teams Rod Buster Helper Relationship Specialty Start Date End Date Nohemi Starr MD [address] [place] [phone] PCP - General Internal Medicine 08/06/22
--- OUTSIDE RECORDS SUMMARY | 2024-04-02 14:05 | XMS_ITS | Encounter Summary ---
Author Organization [employer] Address [address] [place] [address] Care Team Providers Care Railroad Signal Operator Name Role Phone Nohemi Starr MD Primary Care Pro vider Reason for Visit * Reason Comments Med Refill Encounter Details Date Type Department Care Team ([facility] st Contact Info) Description 08/29/2023 Refill [facility] MED & PEDS [address] [place], [place] [phone] Nohemi Starr MD [address] [place], [place] [phone] Social History Tobacco Use Types Packs/Day Years [...] housing situation today? I have hubert miller 12/18/[address] you [...] Description 05/28/2024 1:00 PM EDT Office Visit [facility] OPTOMETRY [address] [place] [address] Bharat, [place], OD [address] [place] [address] 06/02/2024 2:15 PM EDT Office Visit [facility] MEDICINE [address] [place] [address] Nohemi Starr MD [address] [place] [address] documented as of this encounter Goals Goal [...] documented as of this encounter Care Teams Railroad Signal Operator Relationship Specialty Start Date End Date Nohemi Starr MD [address] [place] [phone] PCP - General Internal Medicine 08/06/22 documented as of this encounter
[2024-04-02 14:12] VITALS: BP 115/58; PULSE 85; O2SAT 95; BMI 23.1
== END 2024-04-02 14:53 | disposition home or self-care (01) ==
PROVIDERS: PCP Student in an Organized Health Care Education/Training Program; Visit Provider Student in an Organized Health Care Education/Training Program
DX: M25.50 Pain in unspecified joint (principal)
CPT/HCPCS: 99204; G2211

== ENCOUNTER → 2024-04-02 15:27 | Outpatient (BNV) | payer OTHER, SELFPAY | PROVIDERS: PCP Student in an Organized Health Care Education/Training Program; Visit Provider Radiology Diagnostic Radiology | DX: M25.511 Pain in right shoulder (principal); M25.512 Pain in left shoulder; M79.642 Pain in left hand; M79.641 Pain in right hand; M79.672 Pain in left foot; M79.671 Pain in right foot | CPT/HCPCS: 73030; 73110; 73130; 73630 ==

== ENCOUNTER 2024-10-11 14:58 | Outpatient (RCR) | payer OTHER, SELFPAY ==
--- NOTE | 2024-09-06 15:56 | MHC.PT.EP ---
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 Manual therapy to restore motion and function. Therapeutic exercise to improve strength and flexibility. Neuromuscular re-education for posture and balance. Therapeutic activities to return to functional activities of daily living. Electronically signed by: Please sign and return to therapist. Thank you for your referral.
== END 2024-10-11 15:20 | disposition home or self-care (01) ==
LOC: HO.OT 14:58
PROVIDERS: PCP Student in an Organized Health Care Education/Training Program; Visit Provider Internal Medicine
DX: I69.351 Hemiplegia and hemiparesis following cerebral infarction affecting right dominant side (principal)
CPT/HCPCS: 97110; 97140; 97166; 97530; 97535

== ENCOUNTER 2024-10-14 08:49 | Outpatient (REF) | payer OTHER, SELFPAY ==
--- OUTSIDE RECORDS SUMMARY | 2024-10-14 09:09 | XMS_ITS | Encounter Summary ---
Author Organization [employer] [facility] Address [address] [place] [address] Care Team Providers Care Mortgage Advisor Name Role Phone Irlanda Rm [facility] Primary Care Provider [phone] Nohemi Starr MD Primary Care Pro vider Reason for Visit * Reason Comments Med Refill Encounter Details Date Type Department Care Team ([facility] Contact Info) Description 05/11/2022 Refill [facility] MEDICINE [address] [place] [phone] Irlanda Rm [address] [address] Essential hypertension Social History Tobacco Use Types [...] Upcoming Encounters Date Type Department Care Team ([facility] Contact Info) Description 10/19/2024 11:15 AM EDT Office Visit [facility] MEDICINE [address] [place] [address] Nohemi Starr MD [address] [place] [address] documented as of this encounter Visit Diagnoses Diagnosis Essential hypertension Unspecified essential hypertension documented in this encounter Care Teams Mortgage Advisor Relationship Specialty Start Date End Date Irlanda Rm FNP [address] [place] [phone] PCP - General Family Medicine 01/21/22 08/05/22 Nohemi Starr MD [address] [place] [address] PCP - General Internal Medicine 08/06/22 documented as of this encounter
[2024-10-14 11:37] LABS: Hematocrit 36.1 % (37.0-47.0); Hemoglobin 11.8 g/dl (12.0-16.0); Mean Corpuscular HGB Conc 32.7 g/dl (31.0-35.0); Mean Corpuscular Hemoglobin 31.6 pg (27.0-33.0); Mean Corpuscular Volume 96.5 fL (80.0-98.0); NRBC Abs Auto 0.000 X10*3/uL (0.0-0.012); NRBC Pct Auto 0.0 /100WBC (0.0-0.2); Platelet Count 210 X10*3/uL (160-400); Red Blood Count 3.74 X10*6/uL (4.20-5.50); White Blood Count 7.8 X10*3/uL (4.8-10.8)
[2024-10-14 12:02] LABS: Alanine Aminotransferase 30 U/L (0-31); Albumin Level 4.3 g/dL (3.5-5.0); Alkaline Phosphatase 86 U/L (39-117); Anion Gap 11 (12-20); Aspartate Amino Transferase 44 U/L (5-31); Blood Urea Nitrogen 11 mg/dL (9-16); Calcium 9.4 mg/dL (8.4-10.2); Carbon Dioxide 25 mmol/L (22-29); Chloride 110 mmol/L (96-108); Cholesterol 130 mg/dL (<200); Estimated Glomerular Filt Rate > 60; Gamma Glutamyl Transpeptidase 138 U/L (7-33); HDL Cholesterol 36 mg/dL (>40); Potassium 3.9 mmol/L (3.3-5.1); Sodium 142 mmol/L (135-145); Total Protein 7.6 g/dL (6.5-8.0); Triglycerides 137 mg/dL (<150); Uric Acid 6.0 mg/dL (2.4-5.7)
[2024-10-14 12:09] LABS: Hemoglobin A1C 221.7067 umol/L; Total Hemoglobin (HGBA1C) 4686.0171 umol/L
[2024-10-14 12:27] LABS: Folate 13.2 ng/mL (> or = 4.0); Vitamin B12 618 pg/mL (200-900)
[2024-10-14 13:23] LABS: Free T4 (Free Thyroxine) 0.73 ng/dL (0.71-1.85)
[2024-10-15 09:51] LABS: Iron 56 mcg/dL (30-160); Percent Iron Saturation 16 % (15-50); Total Iron Binding Capacity 346 mcg/dL (228-428); Unsaturated Iron Binding 290 ug/dL
[2024-10-15 10:02] LABS: Ferritin 37 ng/mL (10-250)
== END 2024-10-14 08:50 | disposition home or self-care (01) ==
LOC: HO.HHCL 08:49
PROVIDERS: PCP Student in an Organized Health Care Education/Training Program; Visit Provider Student in an Organized Health Care Education/Training Program
DX: Z00.00 Encounter for general adult medical examination without abnormal findings (principal); R74.01 Elevation of levels of liver transaminase levels; Z13.1 Encounter for screening for diabetes mellitus; Z13.29 Encounter for screening for other suspected endocrine disorder; Z13.21 Encounter for screening for nutritional disorder
CPT/HCPCS: 36415; 80053; 80061; 82043; 82306; 82570; 82607; 82728; 82746; 82977; 83036; 83540; 84439; 84443; 84550; 85027